=== PATIENT | female | born 1935 | race Caucasian/White ===

== ENCOUNTER 2018-08-23 13:21 | Emergency (ER) | payer MEDICARE, MEDICAID ==
[~2018-08-23] VITALS: Ht 165.1 cm; Wt 70.0 kg
[~2018-08-23 13:21] MED LIST: GLIM4TAB2 PO; PIOG15TA6 PO
[2018-08-23 14:15] VITALS: BP 137/59
== END 2018-08-23 17:07 | disposition left against medical advice (07) ==
LOC: ER 13:21
DX: I10 Essential (primary) hypertension (principal); Z53.21 Procedure and treatment not carried out due to patient leaving prior to being seen by health care provider